=== PATIENT | female | born 1965 | race Asian ===

== ENCOUNTER 2021-12-24 14:16 | Outpatient (CLI) | payer MEDICAID ==
[~2021-12-24] VITALS: Ht 160 cm; Wt 70.8 kg
[2021-12-24 15:05] LABS: BASOPHILS # (AUTO) 0.1 X10'3 (0-0.2); BASOPHILS % (AUTO) 0.9 % (0-1); EOSINOPHILS # (AUTO) 0.6 X10'3 (0-0.9); EOSINOPHILS % (AUTO) 5.9 % (0-6); LYMPHOCYTES # (AUTO) 2.2 X10'3 (1.1-4.8); LYMPHOCYTES % (AUTO) 21.7 % (21-51); MEAN CORPUSCULAR HEMOGLOBIN 26.2 PG (27.0-31.0); MEAN CORPUSCULAR HGB CONC 33.6 g/dL (33.0-36.5); MEAN CORPUSCULAR VOLUME 77.9 FL (78-98); MEAN PLATELET VOLUME 7.6 FL (7.4-10.4); MONOCYTES # (AUTO) 0.5 X10'3 (0-0.9); MONOCYTES % (AUTO) 5.1 % (2-12); NEUTROPHILS # (AUTO) 6.7 X10'3 (1.8-7.7); NEUTROPHILS % (AUTO) 66.4 % (42-75); PRE OP HEMATOCRIT 33.5 % (35.0-45.0); PRE OP HEMOGLOBIN 11.3 g/dL (12.0-16.0); PRE OP PLATELET COUNT 408 X10'3 (140-440); RED BLOOD COUNT 4.31 X10'6 (4.20-5.60); RED CELL DISTRIBUTION WIDTH 15.8 % (11.5-14.5)
[2021-12-24 15:22] LABS: ALBUMIN 3.2 G/DL (3.4-5.0); ALBUMIN/GLOBULIN RATIO 0.7 (1.1-1.5); ALKALINE PHOSPHATASE 119 IU/L (46-116); BLOOD UREA NITROGEN 47 MG/DL (7-18); BUN/CREATININE RATIO 23.7 (6.6-38.0); CALCIUM 9.2 MG/DL (8.5-10.1); CHLORIDE 100 MMOL/L (99-107); CREATININE 1.98 MG/DL (0.40-0.90); PRE OP ALT 18 U/L (30-65); PRE OP ANION GAP 9 (8-16); PRE OP AST 15 U/L (10-37); PRE OP BILIRUB, TOTAL 0.2 MG/DL (0.0-1.0); PRE OP GLUCOSE 106 MG/DL (70-104); PRE OP POTASSIUM 4.9 MMOL/L (3.4-5.1); PRE OP SODIUM 135 MMOL/L (135-145); TOTAL CARBON DIOXIDE 26.2 MMOL/L (24-32); TOTAL PROTEIN 7.5 G/DL (6.4-8.2); eGFR 26 ML/MIN
[2021-12-24] MEDS ORDERED: MELO-102 PO (16:06)
[2021-12-24] MEDS ORDERED: LOSA1TAB41 PO (16:06)
[2021-12-24] MEDS ORDERED: LORA10TA7 PO (16:06)
[2021-12-24] MEDS ORDERED: AMLO-708 PO (16:06)
[2021-12-31] MEDS ORDERED: ringers solution, lacted 1,000 ML IV SCH (05:00)
[2021-12-31] MEDS ORDERED: famotidine 20mg tablet PO ONE (05:30)
== END 2021-12-24 23:59 | disposition home or self-care (01) ==
LOC: PRE-OP 14:16 → EDSTATUS 12-31 08:15
PROVIDERS: ATTEND Orthopaedic Surgery Hand Surgery
DX: Z01.818 Encounter for other preprocedural examination (principal); G56.01 Carpal tunnel syndrome, right upper limb; Z20.822 Contact with and (suspected) exposure to COVID-19; Z79.899 Other long term (current) drug therapy
CPT/HCPCS: 36415; 80053; 85025; 93005; U0003; U0005; J7120

== ENCOUNTER 2022-01-10 07:04 | Day surgery (SDC) | payer MEDICAID ==
[2022-01-07 15:58] LABS: BASOPHILS # (AUTO) 0.1 X10'3 (0-0.2); BASOPHILS % (AUTO) 0.8 % (0-1); EOSINOPHILS # (AUTO) 0.4 X10'3 (0-0.9); EOSINOPHILS % (AUTO) 4.2 % (0-6); LYMPHOCYTES # (AUTO) 1.8 X10'3 (1.1-4.8); LYMPHOCYTES % (AUTO) 20.3 % (21-51); MEAN CORPUSCULAR HEMOGLOBIN 26.3 PG (27.0-31.0); MEAN CORPUSCULAR HGB CONC 33.6 g/dL (33.0-36.5); MEAN CORPUSCULAR VOLUME 78.3 FL (78-98); MONOCYTES # (AUTO) 0.5 X10'3 (0-0.9); MONOCYTES % (AUTO) 5.9 % (2-12); NEUTROPHILS # (AUTO) 6.2 X10'3 (1.8-7.7); NEUTROPHILS % (AUTO) 68.8 % (42-75); PRE OP HEMATOCRIT 33.4 % (35.0-45.0); PRE OP HEMOGLOBIN 11.2 g/dL (12.0-16.0); PRE OP PLATELET COUNT 387 X10'3 (140-440); RED BLOOD COUNT 4.26 X10'6 (4.20-5.60); RED CELL DISTRIBUTION WIDTH 15.5 % (11.5-14.5)
[2022-01-07 16:14] LABS: ALBUMIN 3.1 G/DL (3.4-5.0); ALBUMIN/GLOBULIN RATIO 0.7 (1.1-1.5); ALKALINE PHOSPHATASE 115 IU/L (46-116); BLOOD UREA NITROGEN 45 MG/DL (7-18); BUN/CREATININE RATIO 24.7 (6.6-38.0); CALCIUM 8.9 MG/DL (8.5-10.1); CHLORIDE 100 MMOL/L (99-107); CREATININE 1.82 MG/DL (0.40-0.90); PRE OP ALT 17 U/L (30-65); PRE OP ANION GAP 8 (8-16); PRE OP AST 19 U/L (10-37); PRE OP BILIRUB, TOTAL 0.2 MG/DL (0.0-1.0); PRE OP GLUCOSE 100 MG/DL (70-104); PRE OP POTASSIUM 4.9 MMOL/L (3.4-5.1); PRE OP SODIUM 135 MMOL/L (135-145); TOTAL CARBON DIOXIDE 26.9 MMOL/L (24-32); TOTAL PROTEIN 7.5 G/DL (6.4-8.2); eGFR 29 ML/MIN
[2022-01-10] VITALS (17 sets, daily range): BP systolic 106–159; BP diastolic 68–99
[~2022-01-10] VITALS: Ht 160 cm; Wt 70.3 kg
[~2022-01-10 07:04] MED LIST: AMLO-708 PO; BUPIVAcaine 0.5% inj/PF 30 ML ONE; LORA10TA7 PO; LOSA1TAB41 PO; MELO-102 PO; famotidine 20mg tablet PO ONE; ringers solution, lacted 1,000 ML IV SCH
[2022-01-10] MEDS ORDERED: hydrALAZINE 20mg/ml inj. IV PRN (07:40)
[2022-01-10] MEDS ORDERED: fentaNYL/PF 50MCG/1 ML 2ML syringe IV PRN ×2 (07:40)
[2022-01-10] MEDS ORDERED: labetalol 20mg/4ml (5mg/ml) syringe IV PRN (07:40)
[2022-01-10] MEDS ORDERED: morphine 2 MG/ML inj. syringe IV PRN (07:40)
[2022-01-10] MEDS ORDERED: ondansetron/PF 4mg/2ml inj IV PRN (07:40)
[2022-01-10] MEDS ORDERED: morphine 4 MG/ML inj SYRINge IV PRN (07:40)
[2022-01-10] MEDS ORDERED: ringers solution, lacted 1,000 ML IV SCH (07:40)
[2022-01-10] MEDS ORDERED: LIDOcaine 0.5% (5mg/ml) 50ml vial ONE (07:41)
[2022-01-10] MEDS ORDERED: cefazolin/dext.iso 2gm/50ml 50 ML IV ONE (08:50)
[2022-01-10] MEDS ORDERED: propofol 10mg/ml 20ml vial IV ONE (10:05)
[2022-01-10] MEDS ORDERED: labetalol 20mg/4ml (5mg/ml) syringe IV ONE (10:15)
[2022-01-10] MEDS ORDERED: BUPIVAcaine 0.5% inj/PF 30 ml vial IJ ONE (10:31)
--- NOTE | 2022-01-10 10:39 | NUR ---
Received from OR via [facility] , accompanied by Anesthesiologist DR ABDI and report given by Anesthesiolgist. PT PRESENT WITH PIV WITH 18G KEFT FOREARM, DRESSING ON RIGHT HAND/WRIST CDI. VSS. Addendum: 01/10/22 at 1050 by Padma Nice RN, RN Amended: Links added.
--- NOTE | 2022-01-10 13:09 | NUR ---
PT SPEAKS BROKEN SWEDISH, DAUGHTER LAURY BROUGHT INTO ROOM TO HELP WITH TRANSLATION. PT MEETS ALL DC CRITERIA, IV DC'D WITH CANNULA INTACT. DC INSTRUCTIONS REVIEWED WITH PT AND PT'S DAUGHTER WHO BOTH VERBALIZED UNDERSTANDING WITH NO FURTHER QUESTIONS AT THIS TIME. PT WHEELED OUT BY PADMA OG IN WHEELCHAIR TO PT'S DAUGHTER VEHICLE. PT AND DAUGHTER ADVISED TO [facility] RX AT [email or web address] ON [address] AND TO CALL FOR FOLLOW UP APT WITH DR BETANCOURT. Addendum: 01/10/22 at 1331 by Padma Nice RN, RN Amended: Links added.
== END 2022-01-10 13:09 | disposition home or self-care (01) ==
LOC: PAS 07:04
PROVIDERS: ATTEND Orthopaedic Surgery Hand Surgery
DX: G56.01 Carpal tunnel syndrome, right upper limb (principal); I10 Essential (primary) hypertension; Z79.899 Other long term (current) drug therapy; Z20.822 Contact with and (suspected) exposure to COVID-19
CPT/HCPCS: 29848; 36415; 80053; 82948; 85025; 87635; C9803; J2704; J3490; J7030; J7120; S0020; Z7506; Z7512; A4215; A7000